=== PATIENT | male | born 1960 | race Caucasian/White ===

== ENCOUNTER 2017-09-06 13:18 | Emergency (ER) | payer OTHER ==
[~2017-09-06] VITALS: Ht 188 cm; Wt 99.1 kg
[2017-09-06] MEDS ORDERED: LIDOCAINE 1%, 20ML SQ ONE (14:00)
[2017-09-06] MEDS ORDERED: LIDOCAINE 1%, 10ML ONE ×2 (14:18→15:03)
[2017-09-06] MEDS ORDERED: LORazepam 2 MG/ML, 1ML ONE (14:56)
[2017-09-06] MEDS ORDERED: CEFAZOLIN PMX 1GM/50ML 50 ML ONE (14:56)
[2017-09-06] MEDS ORDERED: DIPH,PERTUSS(ACELL),TET VAC/PF 0.5 ML IM-VACC ONE (15:00)
[2017-09-06] MEDS ORDERED: CEFAZOLIN PMX 1GM/50ML 50 ML IVPB ONE (15:00)
[2017-09-06] MEDS ORDERED: SODIUM CHLORIDE FLUSH 10ML SYR IVF ONE (15:00)
[2017-09-06] MEDS ORDERED: SODIUM CHLORIDE 0.9% 1,000ML IVBOLUS ONE (15:00)
[2017-09-06] MEDS ORDERED: LORazepam 2 MG/ML, 1ML IVPush ONE (15:00)
[2017-09-06] MEDS ORDERED: BACITRACIN ZINC OINT 500U/GM, 0.9 GM ONE (15:53)
[2017-09-06 16:10] VITALS: BP 165/85
== END 2017-09-06 16:29 | disposition home or self-care (01) ==
LOC: ED 14:00
DX: S91.311A Laceration without foreign body, right foot, initial encounter (principal); G89.11 Acute pain due to trauma; X58.XXXA Exposure to other specified factors, initial encounter; Y93.89 Activity, other specified; Y92.009 Unspecified place in unspecified non-institutional (private) residence as the place of occurrence of the external cause; Y99.8 Other external cause status
CPT/HCPCS: 13132; 13133; 73630; 96365; 96375; 99285; J0690; J2060; J7030

== ENCOUNTER 2019-01-16 23:25 | Emergency (ER) | payer OTHER ==
[~2019-01-16] VITALS: Ht 188 cm; Wt 100.0 kg
[2019-01-16 23:42] VITALS: BP 147/99
--- NOTE | 2019-01-16 23:45 | NUR ---
bib remsa d/t unable to urinate for 5 hrs pt drank beers tonight never happened per pt's report then pt urniated on the floor as soon as pt was in the rm 17 pt urinated in the bathroom too ordered bladder scanner for checking residual urine
--- NOTE | 2019-01-16 23:54 | NUR ---
bladder scanner shows >754mls of urine shows notify md levi aguillon at bedside informed pt needs catheter for empty of bladder but pt refused to use catheter at this time and wanted to take flomax instead of catheter pt wanted to go to bathroom for more evacuation of urine .
--- NOTE | 2019-01-16 23:57 | NUR ---
was notified about pt's choice of flomax instead of catheter agreed with that
--- NOTE | 2019-01-17 00:01 | NUR ---
pt will be dc'd with flomax prescription
[2019-01-17] MEDS ORDERED: TAMSULOSIN 0.4 MG CAP.ER.24H ONE (00:02)
--- NOTE | 2019-01-17 00:10 | NUR ---
given flomax one dose before sending pt home pt stated pt will back if pt had problems of urination as soon as possible and will follow up urologist at
[2019-01-17] MEDS ORDERED: TAMSULOSIN 0.4 MG CAP.ER.24H PO ONE (00:30)
== END 2019-01-17 00:13 | disposition home or self-care (01) ==
LOC: ED 01-17 00:07
DX: R33.9 Retention of urine, unspecified (principal)
CPT/HCPCS: 99284

== ENCOUNTER 2021-01-09 08:46 | Emergency (ER) | payer OTHER ==
[~2021-01-09] VITALS: Ht 188 cm; Wt 100.7 kg
--- NOTE | 2021-01-09 09:11 | NUR ---
PT BROUGHT BACK TO ROOM VIA WHEELCHAIR. PT CO LEFT HIP PAIN AND STATED THAT HE ALL OF A SUDDEN COULD NOT STAND THIS MORNING. PT HAS WAS DIAGNOSED WITH PROSTATE CA 1 MONTH AGO. PT DENIES ANY INJURY TO LEG, NUMBNESS OR TINGING. CMS INTACT.
[2021-01-09] MEDS ORDERED: HYDROmorphone 1 MG/ML, 1ML INJ IV ONE (09:30)
[2021-01-09] MEDS ORDERED: SODIUM CHLORIDE FLUSH 10ML SYR IVF ONE (09:30)
[2021-01-09] MEDS ORDERED: ONDANSETRON 2MG/ML, 2ML IVPush ONE (09:30)
[2021-01-09 09:38] LABS: ALANINE AMINOTRANSFERASE 28 U/L (12-78); ALBUMIN 3.6 g/dL (3.4-5.0); ANION GAP 7 mmol/L (5-15); CALCIUM 8.9 mg/dL (8.5-10.1); CHLORIDE 106 mmol/L (98-107); CREATININE 1.24 mg/dL (0.7-1.3)
[2021-01-09 09:40] LABS: ALKALINE PHOSPHATASE 92 U/L (45-117); BILIRUBIN,TOTAL 0.4 mg/dL (0.2-1.0); TOTAL PROTEIN 7.1 g/dL (6.4-8.2)
[2021-01-09 09:42] LABS: BASOPHILS % (AUTO) 1 % (0-1); EOSINOPHILS % (AUTO) 8 % (1-7); LYMPHOCYTES % (AUTO) 22 % (22-44); MEAN CORPUSCULAR HEMOGLOBIN 36.1 pg (27.5-34.5); MEAN CORPUSCULAR HGB CONC 35.3 g/dL (33.2-36.2); MEAN PLATELET VOLUME 7.7 fL (7.4-10.4); MONOCYTES % (AUTO) 13 % (2-9); NEUTROPHILS % (AUTO) 55 % (42-75); PLATELET COUNT 211 x10^3/uL (130-400); RED BLOOD COUNT 3.64 x10^6/uL (4.38-5.82); RED CELL DISTRIBUTION WIDTH 12.5 % (9.4-14.8)
--- NOTE | 2021-01-09 09:47 | NUR ---
CT ON HOLD; ONE ROOM WAITING FOR CODE NEURO- OTHER DOING A BIOPSY
--- NOTE | 2021-01-09 10:06 | NUR ---
PT RESTINF IN [facility] COMFORTABLY. PT DENIED PAIN MEDICATION AT THIS TIME. AWAITING CT.
--- NOTE | 2021-01-09 10:17 | NUR ---
PT TO CT
[2021-01-09 10:24] LABS: MD SCAN
[2021-01-09 11:00] VITALS: BP 145/74
--- NOTE | 2021-01-09 11:00 | NUR ---
PT RESTING COMFORTABLY IN [facility], CALL LIGHT WITHIN REACH. PT STILL DECLINING PAIN MEDICATION.
[2021-01-09] MEDS ORDERED: OMNIPAQUE 350 MG/ML, 100ML BOTTLE ONE (11:08)
--- NOTE | 2021-01-09 12:18 | NUR ---
DISCHARGE INSTRUCTIONS REVIEWED WITH PT. ALL QUESTIONS ANSWERED AT THIS TIME.
== END 2021-01-09 12:22 | disposition home or self-care (01) ==
LOC: ED 08:49
DX: M13.851 Other specified arthritis, right hip (principal); C61 Malignant neoplasm of prostate
CPT/HCPCS: 36415; 74178; 80053; 85025; 99285; Q9967

== ENCOUNTER → 2021-01-10 | Outpatient (CLI) | payer OTHER | END | disposition home or self-care (01) | LOC: RAD 09:49 | PROVIDERS: ATTEND Urology | DX: C61 Malignant neoplasm of prostate (principal); N13.30 Unspecified hydronephrosis; N32.89 Other specified disorders of bladder | CPT/HCPCS: 78306; A9503 ==

== ENCOUNTER 2021-01-13 07:35 | Emergency (ER) | payer OTHER ==
[~2021-01-13] VITALS: Ht 188 cm; Wt 100.7 kg
[2021-01-13 08:30] LABS: BASOPHILS % (AUTO) 1 % (0-1); EOSINOPHILS % (AUTO) 4 % (1-7); LYMPHOCYTES % (AUTO) 25 % (22-44); MD NO; MEAN CORPUSCULAR HEMOGLOBIN 35.8 pg (27.5-34.5); MEAN PLATELET VOLUME 7.2 fL (7.4-10.4); MONOCYTES % (AUTO) 14 % (2-9); NEUTROPHILS % (AUTO) 56 % (42-75); PLATELET COUNT 276 x10^3/uL (130-400); RED CELL DISTRIBUTION WIDTH 12.6 % (9.4-14.8)
[2021-01-13 08:35] LABS: ALANINE AMINOTRANSFERASE 31 U/L (12-78); ALBUMIN 3.6 g/dL (3.4-5.0); ANION GAP 8 mmol/L (5-15); CALCIUM 9.3 mg/dL (8.5-10.1); CHLORIDE 108 mmol/L (98-107); CREATININE 1.19 mg/dL (0.7-1.3)
[2021-01-13 08:38] LABS: ALKALINE PHOSPHATASE 94 U/L (45-117); BILIRUBIN,TOTAL 0.5 mg/dL (0.2-1.0); TOTAL PROTEIN 7.2 g/dL (6.4-8.2)
--- NOTE | 2021-01-13 08:47 | NUR ---
PT URINE WALKED TO LAB. BEDSUDE US JUST FINISHING UP.
[2021-01-13] MEDS ORDERED: HYDROmorphone 1 MG/ML, 1ML INJ IM ONE (09:00)
[2021-01-13 09:06] LABS: MICROSCOPIC NOT IND
[2021-01-13] MEDS ORDERED: KETOROLAC 30 MG/1 ML ONE (09:10)
[2021-01-13] MEDS ORDERED: LIDOCAINE 2%,20 ML JEL.PF.APP MM ONE ×2 (09:30→09:54)
[2021-01-13] MEDS ORDERED: KETOROLAC 30 MG/1 ML IM ONE (09:30)
--- NOTE | 2021-01-13 09:34 | NUR ---
dr baird spoke with dr kwok
--- NOTE | 2021-01-13 10:09 | NUR ---
PT AWARE HE NEEDS TO HAVE ENRIQUEZ PLACED. PT GETTING UP TO BATHROOM TO VOID FIRST. PT STATED FIRST PAIN MED DID NOT HELP AT ALL WITH PAIN. PT HAS ANOTHER MED ORDERED.
[2021-01-13] MEDS ORDERED: HYDROmorphone 1 MG/ML, 1ML INJ ONE (10:18)
--- NOTE | 2021-01-13 10:40 | NUR ---
PT MEDICATED FOR PAIN PER EMAR. ORDERED UROJET GIVEN TO PT BEFORE ENRIQUEZ INSERTION.
--- NOTE | 2021-01-13 11:15 | NUR ---
PT HAVING SEVERE PENILE PAIN ABOUT 15MIN AFTER ENRIQUEZ INSERTION. URINE BAG IS AT 1500CC OF DRAINED URINE. NO BLOOD INITIALLY NOTED IN TUBING. MANIPULATED INSERTION TUBING TO ENSURE BALLOON WAS NOT IN URETHRA AND PRESSED ON BELLY, BLOOD TINGED URINE EMERGED, PT PAIN REDUCED DRASTICALLY. ENRIQUEZ CONTINUING TO DRAIN. ERP AWARE.
[2021-01-13 13:29] VITALS: BP 172/94
== END 2021-01-13 13:30 | disposition home or self-care (01) ==
LOC: ED 07:59
DX: N40.1 Benign prostatic hyperplasia with lower urinary tract symptoms (principal); R33.8 Other retention of urine; M54.5 Low back pain
CPT/HCPCS: 36415; 51702; 76770; 80053; 81003; 85025; 96372; 99285; J1170; J1885

== ENCOUNTER 2021-02-22 23:21 | Emergency (ER) | payer OTHER ==
[~2021-02-22] VITALS: Ht 188 cm; Wt 92.0 kg
--- NOTE | 2021-02-22 23:25 | NUR ---
THIS IS A 61M BIB EMS FROM HOME FOLLOWING [facility], PT C/O L HIP PAIN. PT REPORTS ETOH AND THC TONIGHT PRIOR TO EVENT. PT DENIES HEAD INJURY/ LOC/ N/V. PT ARRIVES WITH MINA IN PLACE STS IT WAS INSERTED 02/09/21 AND WILL BE CHANGED THE February. PT CONNECTED TO MONITORING RESTING ON [facility]
[2021-02-22 23:59] LABS: BASOPHILS % (AUTO) 1 % (0-1); EOSINOPHILS % (AUTO) 1 % (1-7); LYMPHOCYTES % (AUTO) 28 % (22-44); MEAN CORPUSCULAR HEMOGLOBIN 35.3 pg (27.5-34.5); MEAN CORPUSCULAR HGB CONC 34.4 g/dL (33.2-36.2); MEAN PLATELET VOLUME 6.9 fL (7.4-10.4); MONOCYTES % (AUTO) 8 % (2-9); NEUTROPHILS % (AUTO) 63 % (42-75); PLATELET COUNT 287 x10^3/uL (130-400); RED BLOOD COUNT 3.83 x10^6/uL (4.38-5.82); RED CELL DISTRIBUTION WIDTH 12.6 % (9.4-14.8)
--- NOTE | 2021-02-23 00:03 | NUR ---
PT TO XRAY
[2021-02-23 00:08] LABS: ALBUMIN 3.4 g/dL (3.4-5.0); ANION GAP 10 mmol/L (5-15); CALCIUM 8.6 mg/dL (8.5-10.1); CHLORIDE 102 mmol/L (98-107); CREATININE 0.92 mg/dL (0.7-1.3)
--- NOTE | 2021-02-23 00:20 | NUR ---
URINE SENT TO LAB
[2021-02-23 01:01] LABS: MICROSCOPIC INDICATED
--- NOTE | 2021-02-23 01:25 | NUR ---
BREAK RN. PT SLEEPING, RESP EVEN AND UNLABORED.
[2021-02-23] MEDS ORDERED: OMNIPAQUE 350 MG/ML, 100ML BOTTLE ONE (01:56)
[2021-02-23] MEDS ORDERED: ONDANSETRON 2MG/ML, 2ML ONE (03:21)
[2021-02-23] MEDS ORDERED: MORPHINE SULFATE 4 MG/ML, 1ML ONE (03:21)
--- NOTE | 2021-02-23 03:26 | NUR ---
PER ERP NO CULTURES TO BE DRAWN PRIOR TO ABX START
--- NOTE | 2021-02-23 03:29 | NUR ---
PT RESTING ON [facility]
[2021-02-23] MEDS ORDERED: CEFTRIAXONE 1,000 MG in DEXTROSE 5% 50 ML IVPB ONE (03:30)
[2021-02-23] MEDS ORDERED: ONDANSETRON 2MG/ML, 2ML IVPush ONE (03:30)
[2021-02-23] MEDS ORDERED: MORPHINE SULFATE 4 MG/ML, 1ML IVPush PRN (03:30)
[2021-02-23 04:21] VITALS: BP 113/61
[2021-02-23] MEDS ORDERED: KETOROLAC 30 MG/1 ML IVPush ONE (04:30)
[2021-02-23] MEDS ORDERED: KETOROLAC 30 MG/1 ML ONE (04:34)
--- NOTE | 2021-02-23 05:03 | NUR ---
Patient/Caregiver given discharge instructions and they have confirmed that they understand the instructions. Patient ambulatory with steady gait. NAD, all questions answered appropriately, denies additional needs at this time. No personal belongings left in room after discharge.
== END 2021-02-23 05:04 | disposition home or self-care (01) ==
LOC: ED 23:50
DX: N39.0 Urinary tract infection, site not specified (principal); N12 Tubulo-interstitial nephritis, not specified as acute or chronic; Z85.46 Personal history of malignant neoplasm of prostate
CPT/HCPCS: 36415; 72110; 73502; 74177; 80048; 81001; 82040; 85025; 87077; 87086; 96365; 96375; 99285; J0696; J2270; J2405; Q9967; 87186

== ENCOUNTER 2021-03-28 05:08 | Inpatient (IN) | payer OTHER ==
[~2021-03-28] VITALS: Ht 188 cm; Wt 88.5 kg
[2021-03-28] MEDS ORDERED: MORPHINE SULFATE 4 MG/ML, 1ML ONE ×2 (05:25→08:56)
[2021-03-28] MEDS ORDERED: METOPROLOL 1 MG/ML, 5ML ONE (05:25)
[2021-03-28] MEDS ORDERED: SODIUM CHLORIDE 0.9% 1,000ML IVBOLUS ONE (05:30)
[2021-03-28] MEDS ORDERED: METOPROLOL 1 MG/ML, 5ML IVPush PRN ×2 (05:30→10:30)
[2021-03-28] MEDS ORDERED: SODIUM CHLORIDE FLUSH 10ML SYR IVF ONE (05:30)
[2021-03-28 05:36] LABS: BASOPHILS % (AUTO) 1 % (0-1); EOSINOPHILS % (AUTO) 1 % (1-7); LYMPHOCYTES % (AUTO) 20 % (22-44); MEAN CORPUSCULAR HEMOGLOBIN 35.3 pg (27.5-34.5); MEAN CORPUSCULAR HGB CONC 34.6 g/dL (33.2-36.2); MEAN PLATELET VOLUME 7.3 fL (7.4-10.4); MONOCYTES % (AUTO) 16 % (2-9); NEUTROPHILS % (AUTO) 62 % (42-75); PLATELET COUNT 166 x10^3/uL (130-400); RED BLOOD COUNT 3.65 x10^6/uL (4.38-5.82); RED CELL DISTRIBUTION WIDTH 12.6 % (9.4-14.8)
[2021-03-28] MEDS: MORPHINE SULFATE 4 MG/ML, 1ML IVPush PRN ×3 (05:40→11:30)
--- NOTE | 2021-03-28 05:40 | NUR ---
PATIENT MEDICATED PER MAR
--- NOTE | 2021-03-28 05:43 | NUR ---
PATIENT BIBA AFTER 2 SYCOPE EPISODES AT HOME. DREW STATES HE WAS ATTEMPTING TO GET A DRINK OF WATER WHEN HE "PASSED OUT" IN HIS KITCHEN AND THEN ONCE MORE WHEN HE WAS ATTEMPTING TO GET BACK INTO BED. PATIENT WAS FOUND BY EMS IN HIS BED. ON EMS MONITOR PATIENT WAS IN A-FIB WITH RVR RATE 160-200. DENIES HISTORY OF A-FIB
[2021-03-28 05:50] LABS: ALANINE AMINOTRANSFERASE 47 U/L (12-78); ALBUMIN 3.3 g/dL (3.4-5.0); ANION GAP 7 mmol/L (5-15); CALCIUM 8.1 mg/dL (8.5-10.1); CHLORIDE 107 mmol/L (98-107); CREATININE 0.97 mg/dL (0.7-1.3)
--- NOTE | 2021-03-28 05:53 | NUR ---
PATIENT REPORTS TO THE RN HE DRINKS 6-9 BEERS A DAY. YESTERDAY PATIENT REPORTS HAVING 4 BEERS AND THAT "IS ONLY A WARM UP"
[2021-03-28 05:54] LABS: ALKALINE PHOSPHATASE 94 U/L (45-117); BILIRUBIN,TOTAL 0.3 mg/dL (0.2-1.0); TOTAL PROTEIN 6.9 g/dL (6.4-8.2); TROPONIN I < 0.015 ng/mL (0.000-0.045)
--- NOTE | 2021-03-28 05:59 | NUR ---
PATIENT REPORTS PAIN IN HIS BACK SPIKED THEN SUBSIDED ONCE MORE. NAD AT THIS TIME.
[2021-03-28] MEDS ORDERED: APIXABAN 5 MG TABLET PO ONE (06:14)
[2021-03-28] MEDS ORDERED: AMIODARONE 50 MG/ML, 3ML ONE (06:15)
[2021-03-28] MEDS ORDERED: AMIODARONE 150 MG in DEXTROSE 5% 100 ML IV ONE (06:30)
[2021-03-28] MEDS ORDERED: AMIODARONE 50 MG/ML, 3ML IVPush ONE (06:30)
[2021-03-28] MEDS ORDERED: FILTER 0.22 MICRON IV ONE (06:30)
[2021-03-28] MEDS ORDERED: APIXABAN 5 MG TABLET ONE (06:31)
--- NOTE | 2021-03-28 06:54 | NUR ---
REPORT GIVEN TO KASEY KINCAID
--- NOTE | 2021-03-28 07:00 | NUR ---
report received from Carmina PARKS
--- NOTE | 2021-03-28 07:01 | NUR ---
pt resting in bed, a&o, resps even and unlabored, all monitors attached, nsr, vss, nadn.
--- NOTE | 2021-03-28 07:25 | NUR ---
PT TO CT, THIS RN TO ACCOMPANY WITH MONITORS IN PLACE
--- NOTE | 2021-03-28 07:37 | NUR ---
PT BACK FROM CT, ALL MONITORS IN PLACE, NSR, CALEN.
[2021-03-28] MEDS ORDERED: OMNIPAQUE 350 MG/ML, 75ML BOTTLE ONE (08:16)
--- NOTE | 2021-03-28 08:40 | NUR ---
report given to receiving nathen nickerson in 503
[2021-03-28] MEDS ORDERED: ICN FENTANYL 4MCG/ML IV IVPush ONE (09:06)
[2021-03-28] MEDS ORDERED: FENTANYL PF 100 MCG/2ML ONE (09:46)
--- NOTE | 2021-03-28 09:55 | NUR ---
pt medicated for pain per eMAR, tolerated well. [facility] at bedside to discuss POC
[2021-03-28] MEDS ORDERED: FENTANYL PF 100 MCG/2ML IV ONE (10:00)
[2021-03-28] MEDS ORDERED: ACETAMINOPHEN 325 MG TABLET PO PRN (10:30)
[2021-03-28] MEDS ORDERED: POLYETHYLENE GLYCOL 17 GM PACKET PO PRN (10:30)
[2021-03-28] MEDS ORDERED: APIXABAN 5 MG TABLET PO SCH (10:34)
[2021-03-28 10:46] LABS: FREE T4 (FREE THYROXINE) 0.98 ng/dL (0.76-1.46)
[2021-03-28 11:03] VITALS: BP 167/101
[2021-03-28 11:10] VITALS: BP 150/84
[2021-03-28] MEDS: LACTATED RINGERS 1,000 ML IV SCH (11:25)
[2021-03-28] MEDS ORDERED: TAMS-11 PO (11:51)
[2021-03-28] MEDS: OXYcodone/APAP 5/325MG TABLET PO PRN ×2 (12:58→20:18)
[2021-03-28 13:20] VITALS: BP 157/85
[2021-03-28] MEDS ORDERED: ONDANSETRON 2MG/ML, 2ML IVPush PRN (15:30)
[2021-03-28] MEDS ORDERED: ALPR1TAB2 PO ×2 (15:50→17:13)
[2021-03-28] MEDS ORDERED: LORazepam 2 MG/ML, 1ML IV PRN (16:00)
[2021-03-28] MEDS ORDERED: CHLORDIAZEPOXIDE 25 MG CAPSULE PO SCH (16:00)
[2021-03-28] MEDS ORDERED: LORazepam 1MG TABLET PO PRN (16:00)
[2021-03-28 17:22] VITALS: BP 165/85
[2021-03-28] MEDS: BACLOFEN 10 MG TABLET PO SCH ×2 (17:23→20:18)
[2021-03-28] MEDS: METOPROLOL TARTRATE 25 MG TAB PO SCH (17:23)
[2021-03-28] MEDS ORDERED: LORazepam 2 MG/ML, 1ML IVPush PRN (17:30)
[2021-03-28] MEDS ORDERED: OXYcodone IR 5MG TABLET PO PRN (17:30)
[2021-03-28 19:22] VITALS: BP 162/80
[2021-03-28] MEDS: APIXABAN 5 MG TABLET PO SCH (20:17)
[2021-03-28] MEDS: DOCUSATE 100 MG CAPSULE PO SCH (20:18)
[2021-03-29] MEDS: OXYcodone/APAP 5/325MG TABLET PO PRN ×4 (00:29→16:12)
[2021-03-29 00:30] VITALS: BP 135/82
[2021-03-29] MEDS: LACTATED RINGERS 1,000 ML IV SCH ×2 (00:30→10:56)
[2021-03-29] MEDS: MORPHINE SULFATE 4 MG/ML, 1ML IVPush PRN (00:52)
[2021-03-29 05:20] LABS: BASOPHILS % (AUTO) 1 % (0-1); EOSINOPHILS % (AUTO) 1 % (1-7); LYMPHOCYTES % (AUTO) 36 % (22-44); MEAN CORPUSCULAR HEMOGLOBIN 34.9 pg (27.5-34.5); MEAN CORPUSCULAR HGB CONC 34.6 g/dL (33.2-36.2); MEAN PLATELET VOLUME 7.6 fL (7.4-10.4); MONOCYTES % (AUTO) 23 % (2-9); NEUTROPHILS % (AUTO) 41 % (42-75); PLATELET COUNT 166 x10^3/uL (130-400); RED BLOOD COUNT 3.64 x10^6/uL (4.38-5.82); RED CELL DISTRIBUTION WIDTH 12.7 % (9.4-14.8)
[2021-03-29 05:32] LABS: CALCIUM 8.7 mg/dL (8.5-10.1); CHLORIDE 105 mmol/L (98-107)
[2021-03-29 05:33] LABS: CREATININE 0.85 mg/dL (0.7-1.3)
[2021-03-29] MEDS: METOPROLOL TARTRATE 25 MG TAB PO SCH ×2 (05:34→21:46)
[2021-03-29 05:44] LABS: ANION GAP 2 mmol/L (5-15)
[2021-03-29 07:41] VITALS: BP 126/73
[2021-03-29] MEDS: MULTIVITAMINS/MINERALS TABLET PO SCH (08:29)
[2021-03-29] MEDS: BACLOFEN 10 MG TABLET PO SCH ×3 (08:29→21:45)
[2021-03-29] MEDS: APIXABAN 5 MG TABLET PO SCH ×2 (08:30→21:45)
[2021-03-29] MEDS: DOCUSATE 100 MG CAPSULE PO SCH ×2 (08:33→21:45)
[2021-03-29 14:32] VITALS: BP 143/83
[2021-03-29] MEDS ORDERED: GADOTERATE 10 MMOL/20ML SYR ONE (18:05)
[2021-03-29 18:42] VITALS: BP 144/78
[2021-03-30 00:15] VITALS: BP 165/87
[2021-03-30] MEDS: OXYcodone/APAP 5/325MG TABLET PO PRN (02:28)
[2021-03-30] MEDS: LACTATED RINGERS 1,000 ML IV SCH ×3 (02:29→23:16)
[2021-03-30 05:10] LABS: BASOPHILS % (AUTO) 1 % (0-1); EOSINOPHILS % (AUTO) 0 % (1-7); LYMPHOCYTES % (AUTO) 21 % (22-44); MEAN CORPUSCULAR HEMOGLOBIN 35.1 pg (27.5-34.5); MEAN CORPUSCULAR HGB CONC 35.1 g/dL (33.2-36.2); MEAN PLATELET VOLUME 7.7 fL (7.4-10.4); MONOCYTES % (AUTO) 12 % (2-9); NEUTROPHILS % (AUTO) 66 % (42-75); PLATELET COUNT 171 x10^3/uL (130-400); RED CELL DISTRIBUTION WIDTH 12.7 % (9.4-14.8)
[2021-03-30 05:18] LABS: ANION GAP 9 mmol/L (5-15); CHLORIDE 100 mmol/L (98-107); CREATININE 0.71 mg/dL (0.7-1.3)
[2021-03-30 05:33] VITALS: BP 156/82
[2021-03-30] MEDS: METOPROLOL TARTRATE 25 MG TAB PO SCH ×2 (05:36→18:13)
[2021-03-30] MEDS ORDERED: POTASSIUM CHLORIDE 20 MEQ TAB.ER.PRT PO ONE (06:30)
[2021-03-30 07:32] VITALS: BP 154/85
[2021-03-30] MEDS ORDERED: THIAMINE 100MG TABLET ONE (08:38)
[2021-03-30] MEDS: DOCUSATE 100 MG CAPSULE PO SCH ×2 (08:46→21:47)
[2021-03-30] MEDS: MULTIVITAMINS/MINERALS TABLET PO SCH (08:47)
[2021-03-30] MEDS: APIXABAN 5 MG TABLET PO SCH ×2 (08:47→21:48)
[2021-03-30] MEDS: BACLOFEN 10 MG TABLET PO SCH ×3 (08:47→21:48)
[2021-03-30] MEDS: THIAMINE 100MG TABLET PO SCH (08:54)
[2021-03-30] MEDS ORDERED: THIAMINE 100 MG in DEXTROSE 5% 50 ML IVPB SCH (09:00)
[2021-03-30 12:44] VITALS: BP 176/76
[2021-03-30 14:35] VITALS: BP 169/95
[2021-03-30 18:33] VITALS: BP 172/97
[2021-03-30] MEDS: LORazepam 0.5MG TABLET PO PRN (21:48)
[2021-03-31 02:00] VITALS: BP 156/62
[2021-03-31] MEDS: LORazepam 1MG TABLET PO PRN ×2 (03:53→08:35)
[2021-03-31 05:13] LABS: BASOPHILS % (AUTO) 1 % (0-1); EOSINOPHILS % (AUTO) 0 % (1-7); LYMPHOCYTES % (AUTO) 11 % (22-44); MEAN CORPUSCULAR HEMOGLOBIN 35.2 pg (27.5-34.5); MEAN CORPUSCULAR HGB CONC 35.7 g/dL (33.2-36.2); MEAN PLATELET VOLUME 7.9 fL (7.4-10.4); MONOCYTES % (AUTO) 15 % (2-9); NEUTROPHILS % (AUTO) 74 % (42-75); PLATELET COUNT 161 x10^3/uL (130-400); RED BLOOD COUNT 3.79 x10^6/uL (4.38-5.82); RED CELL DISTRIBUTION WIDTH 12.6 % (9.4-14.8)
[2021-03-31 05:24] LABS: CHLORIDE 96 mmol/L (98-107)
[2021-03-31 05:30] LABS: ANION GAP 11 mmol/L (5-15); CALCIUM 8.3 mg/dL (8.5-10.1); CREATININE 0.63 mg/dL (0.7-1.3)
[2021-03-31] MEDS: APIXABAN 5 MG TABLET PO SCH ×2 (08:41→22:35)
[2021-03-31] MEDS: LACTATED RINGERS 1,000 ML IV SCH ×3 (08:41→13:14)
[2021-03-31] MEDS: BACLOFEN 10 MG TABLET PO SCH ×3 (08:41→22:35)
[2021-03-31] MEDS: DOCUSATE 100 MG CAPSULE PO SCH ×2 (08:41→21:00)
[2021-03-31] MEDS: MULTIVITAMINS/MINERALS TABLET PO SCH (08:41)
[2021-03-31] MEDS: METOPROLOL TARTRATE 25 MG TAB PO SCH ×2 (08:41→17:14)
[2021-03-31] MEDS: THIAMINE 100MG TABLET PO SCH (08:42)
[2021-03-31 08:57] VITALS: BP 145/60
[2021-03-31] MEDS ORDERED: POTASSIUM CHLORIDE 20 MEQ TAB.ER.PRT PO ONE (10:30)
[2021-03-31] MEDS ORDERED: MAGNESIUM SULFATE PMX 4GM/100M 100 ML ONE (13:05)
[2021-03-31] MEDS: LORazepam 2 MG/ML, 1ML IV PRN ×3 (13:10→22:36)
[2021-03-31] MEDS ORDERED: MAGNESIUM SULFATE PMX 4GM/100M 100 ML IVPB ONE (13:30)
[2021-03-31 13:58] VITALS: BP 145/75
[2021-03-31 22:31] VITALS: BP 160/90
[2021-04-01 02:35] VITALS: BP 165/95
[2021-04-01] MEDS: LORazepam 2 MG/ML, 1ML IV PRN ×5 (02:40→15:34)
[2021-04-01] MEDS: ACETAMINOPHEN 325 MG TABLET PO PRN (02:46)
[2021-04-01] MEDS: LACTATED RINGERS 1,000 ML IV SCH ×2 (03:10→20:26)
[2021-04-01 05:17] LABS: ANION GAP 10 mmol/L (5-15); CALCIUM 8.1 mg/dL (8.5-10.1); CHLORIDE 97 mmol/L (98-107)
[2021-04-01 05:18] LABS: CREATININE 0.72 mg/dL (0.7-1.3)
[2021-04-01] MEDS: METOPROLOL TARTRATE 25 MG TAB PO SCH (05:52)
[2021-04-01] MEDS: DOCUSATE 100 MG CAPSULE PO SCH ×3 (08:10→20:34)
[2021-04-01 08:11] VITALS: BP 158/89
[2021-04-01] MEDS: MULTIVITAMINS/MINERALS TABLET PO SCH (08:17)
[2021-04-01] MEDS: APIXABAN 5 MG TABLET PO SCH ×2 (08:17→20:25)
[2021-04-01] MEDS: BACLOFEN 10 MG TABLET PO SCH ×3 (08:17→20:26)
[2021-04-01] MEDS: THIAMINE 100MG TABLET PO SCH (08:18)
[2021-04-01] MEDS ORDERED: POTASSIUM CHLORIDE 20 MEQ TAB.ER.PRT PO ONE (08:30)
[2021-04-01 15:23] VITALS: BP 137/89
[2021-04-01] MEDS: CARVEDILOL 6.25 MG TABLET PO SCH (17:32)
[2021-04-01 18:51] VITALS: BP 130/81
[2021-04-01] MEDS: LOSARTAN 25MG TABLET PO SCH (20:25)
[2021-04-01] MEDS: LORazepam 1MG TABLET PO PRN (20:25)
[2021-04-01] MEDS: AMLODIPINE 5 MG TABLET PO SCH (20:25)
[2021-04-02 00:58] VITALS: BP 143/78
[2021-04-02] MEDS: ACETAMINOPHEN 325 MG TABLET PO PRN (01:39)
[2021-04-02] MEDS: LORazepam 1MG TABLET PO PRN ×2 (01:39→06:44)
[2021-04-02 04:46] LABS: CALCIUM 8.9 mg/dL (8.5-10.1); CREATININE 0.78 mg/dL (0.7-1.3)
[2021-04-02 04:56] LABS: ANION GAP 7 mmol/L (5-15); CHLORIDE 98 mmol/L (98-107)
[2021-04-02 06:26] VITALS: BP 146/84
[2021-04-02 06:39] VITALS: BP 126/78
[2021-04-02] MEDS: CARVEDILOL 6.25 MG TABLET PO SCH ×2 (06:43→17:21)
[2021-04-02] MEDS: DOCUSATE 100 MG CAPSULE PO SCH ×2 (08:59→20:58)
[2021-04-02] MEDS: MULTIVITAMINS/MINERALS TABLET PO SCH (09:17)
[2021-04-02] MEDS: THIAMINE 100MG TABLET PO SCH (09:17)
[2021-04-02] MEDS: BACLOFEN 10 MG TABLET PO SCH ×3 (09:17→20:58)
[2021-04-02] MEDS: APIXABAN 5 MG TABLET PO SCH ×2 (09:17→20:57)
[2021-04-02 09:33] VITALS: BP 124/86
[2021-04-02] MEDS: LORazepam 0.5MG TABLET PO PRN ×2 (09:36→20:57)
[2021-04-02] MEDS: LACTATED RINGERS 1,000 ML IV SCH (11:20)
[2021-04-02 13:38] VITALS: BP 129/78
[2021-04-02 19:36] VITALS: BP 154/78
[2021-04-02] MEDS: LOSARTAN 25MG TABLET PO SCH (20:58)
[2021-04-02] MEDS: AMLODIPINE 5 MG TABLET PO SCH (20:58)
[2021-04-03 00:07] VITALS: BP 150/86
[2021-04-03] MEDS: LORazepam 1MG TABLET PO PRN (00:32)
[2021-04-03 05:52] VITALS: BP 152/80
[2021-04-03] MEDS: LORazepam 0.5MG TABLET PO PRN ×2 (05:53→20:25)
[2021-04-03] MEDS: CARVEDILOL 6.25 MG TABLET PO SCH ×2 (05:54→17:04)
[2021-04-03] MEDS: CEFTRIAXONE 2,000 MG in DEXTROSE 5% 50 ML IV SCH (09:00)
[2021-04-03] MEDS ORDERED: DEXAMETHASONE 4 MG/ML, 5ML IVPush SCH (09:00)
[2021-04-03 09:10] VITALS: BP 157/83
[2021-04-03] MEDS: DEXAMETHASONE 4 MG/ML, 1ML IVPush SCH (09:15)
[2021-04-03] MEDS: THIAMINE 100MG TABLET PO SCH (10:45)
[2021-04-03] MEDS: APIXABAN 5 MG TABLET PO SCH ×2 (10:46→20:24)
[2021-04-03] MEDS: DOCUSATE 100 MG CAPSULE PO SCH ×2 (10:46→19:21)
[2021-04-03] MEDS: ACETAMINOPHEN 325 MG TABLET PO PRN (10:46)
[2021-04-03] MEDS: BACLOFEN 10 MG TABLET PO SCH ×3 (10:46→20:24)
[2021-04-03] MEDS: MULTIVITAMINS/MINERALS TABLET PO SCH (10:46)
[2021-04-03] MEDS: LACTATED RINGERS 1,000 ML IV SCH (11:28)
[2021-04-03 13:44] VITALS: BP 138/76
[2021-04-03 18:03] LABS: MICROSCOPIC INDICATED
[2021-04-03 18:42] VITALS: BP 138/83
[2021-04-03 19:36] LABS: RAPID INFLUENZA A Negative (Negative); RAPID INFLUENZA B Negative (Negative)
[2021-04-03] MEDS: LOSARTAN 25MG TABLET PO SCH (20:24)
[2021-04-03] MEDS: AMLODIPINE 5 MG TABLET PO SCH (20:24)
[2021-04-04] MEDS: LACTATED RINGERS 1,000 ML IV SCH ×2 (00:24→20:54)
[2021-04-04 01:45] VITALS: BP 129/78
[2021-04-04] MEDS: ACETAMINOPHEN 325 MG TABLET PO PRN (03:50)
[2021-04-04 05:35] LABS: MEAN CORPUSCULAR HEMOGLOBIN 34.6 pg (27.5-34.5); MEAN CORPUSCULAR HGB CONC 35.1 g/dL (33.2-36.2); MEAN PLATELET VOLUME 7.9 fL (7.4-10.4); PLATELET COUNT 187 x10^3/uL (130-400); RED BLOOD COUNT 3.79 x10^6/uL (4.38-5.82); RED CELL DISTRIBUTION WIDTH 12.8 % (9.4-14.8)
[2021-04-04 05:47] LABS: ANION GAP 8 mmol/L (5-15); CALCIUM 8.3 mg/dL (8.5-10.1); CHLORIDE 100 mmol/L (98-107); CREATININE 0.62 mg/dL (0.7-1.3)
[2021-04-04 06:04] VITALS: BP 129/81
[2021-04-04] MEDS: CARVEDILOL 6.25 MG TABLET PO SCH ×2 (06:05→17:13)
[2021-04-04] MEDS ORDERED: POTASSIUM CHLORIDE 20 MEQ TAB.ER.PRT PO ONE (08:30)
[2021-04-04] MEDS: BACLOFEN 10 MG TABLET PO SCH ×3 (09:29→20:53)
[2021-04-04] MEDS: MULTIVITAMINS/MINERALS TABLET PO SCH (09:29)
[2021-04-04] MEDS: DOCUSATE 100 MG CAPSULE PO SCH ×2 (09:30→20:54)
[2021-04-04] MEDS: THIAMINE 100MG TABLET PO SCH (09:30)
[2021-04-04] MEDS: DEXAMETHASONE 4 MG/ML, 1ML IVPush SCH (09:30)
[2021-04-04] MEDS: APIXABAN 5 MG TABLET PO SCH ×2 (09:30→20:53)
[2021-04-04 09:41] LABS: BAND#(MANUAL) 0.09 x10^3/uL; BANDS%(MANUAL) 3 % (0-7); LYMPH#(MANUAL) 1.11 x10^3/uL (1-3.4); LYMPHS% (MANUAL) 37 % (22-44); MONOS#(MANUAL) 0.54 x10^3/uL (0.3-2.7); MONOS% (MANUAL) 18 % (2-9); REACTIVE LYMPHS # (MANUAL) 0.03 x10^3/uL (0-0); REACTIVE LYMPHS % (MANUAL) 1 % (0-0); SEG#(MANUAL) 1.23 x10^3/uL (1.8-6.8); SEGS% (MANUAL) 41 % (42-75)
[2021-04-04 09:42] LABS: <PLATELET ESTIMATE> ADEQUATE; <PLT MORPHOLOGY> NORMAL PLT MORPH; <RBC MORPHOLOGY> NORMAL
[2021-04-04] MEDS: CEFTRIAXONE 2,000 MG in DEXTROSE 5% 50 ML IV SCH (09:57)
[2021-04-04] MEDS ORDERED: BENZONATATE 100 MG CAPSULE PO PRN ×2 (12:30→13:00)
[2021-04-04 13:18] VITALS: BP 121/79
--- NOTE | 2021-04-04 16:57 | NUR ---
green nursing activity sheet initiated pt up to chair for meals and up to BSC with nursing Addendum: 04/04/21 at 1700 by Opal Lopez PT Amended: Links added.
[2021-04-04] MEDS: ASCORBIC ACID 250 MG TAB PO SCH (17:13)
[2021-04-04 18:44] VITALS: BP 111/68
[2021-04-04] MEDS: AMLODIPINE 5 MG TABLET PO SCH (20:53)
[2021-04-04] MEDS: LOSARTAN 25MG TABLET PO SCH (20:53)
[2021-04-05] VITALS (7 sets, daily range): BP systolic 105–141; BP diastolic 66–84
[2021-04-05 05:55] LABS: CALCIUM 9.3 mg/dL (8.5-10.1); CREATININE 0.54 mg/dL (0.7-1.3)
[2021-04-05] MEDS: CARVEDILOL 6.25 MG TABLET PO SCH ×2 (06:03→17:49)
[2021-04-05 06:11] LABS: ANION GAP 8 mmol/L (5-15); CHLORIDE 104 mmol/L (98-107)
[2021-04-05] MEDS: THIAMINE 100MG TABLET PO SCH (09:00)
[2021-04-05] MEDS: CEFTRIAXONE 2,000 MG in DEXTROSE 5% 50 ML IV SCH (09:00)
[2021-04-05] MEDS: BACLOFEN 10 MG TABLET PO SCH ×3 (09:06→21:56)
[2021-04-05] MEDS: ASCORBIC ACID 250 MG TAB PO SCH ×2 (09:06→17:49)
[2021-04-05] MEDS: APIXABAN 5 MG TABLET PO SCH ×2 (09:06→21:56)
[2021-04-05] MEDS: DOCUSATE 100 MG CAPSULE PO SCH ×2 (09:06→21:56)
[2021-04-05] MEDS: MULTIVITAMINS/MINERALS TABLET PO SCH (09:06)
[2021-04-05] MEDS: DEXAMETHASONE 4 MG/ML, 1ML IVPush SCH (09:07)
[2021-04-05] MEDS: LACTATED RINGERS 1,000 ML IV SCH (10:18)
[2021-04-05] MEDS: LOSARTAN 25MG TABLET PO SCH (21:56)
[2021-04-05] MEDS: AMLODIPINE 5 MG TABLET PO SCH (21:56)
[2021-04-06] MEDS: LACTATED RINGERS 1,000 ML IV SCH (02:55)
[2021-04-06 02:57] VITALS: BP 146/81
[2021-04-06 06:07] VITALS: BP 148/76
[2021-04-06 06:08] LABS: C-REACTIVE PROTEIN, QUANT 2.4 mg/dL (0.02-0.49)
[2021-04-06] MEDS: CARVEDILOL 6.25 MG TABLET PO SCH ×2 (06:10→17:58)
[2021-04-06 08:18] VITALS: BP 154/74
[2021-04-06] MEDS: DOCUSATE 100 MG CAPSULE PO SCH ×2 (08:46→21:52)
[2021-04-06] MEDS: BACLOFEN 10 MG TABLET PO SCH ×3 (08:46→21:52)
[2021-04-06] MEDS: THIAMINE 100MG TABLET PO SCH (08:46)
[2021-04-06] MEDS: APIXABAN 5 MG TABLET PO SCH ×2 (08:46→21:52)
[2021-04-06] MEDS: MULTIVITAMINS/MINERALS TABLET PO SCH (08:46)
[2021-04-06] MEDS: DEXAMETHASONE 4 MG/ML, 1ML IVPush SCH (08:47)
[2021-04-06] MEDS: ASCORBIC ACID 250 MG TAB PO SCH ×2 (08:47→17:58)
[2021-04-06] MEDS: CEFDINIR 300 MG CAPSULE PO SCH ×2 (11:02→21:52)
[2021-04-06 13:58] VITALS: BP 158/82
[2021-04-06] MEDS: LOSARTAN 25MG TABLET PO SCH (21:52)
[2021-04-06] MEDS: AMLODIPINE 5 MG TABLET PO SCH (21:52)
[2021-04-06 21:57] VITALS: BP 141/87
[2021-04-07 02:42] VITALS: BP 144/83
[2021-04-07] MEDS: ASCORBIC ACID 250 MG TAB PO SCH (06:16)
[2021-04-07] MEDS: CARVEDILOL 6.25 MG TABLET PO SCH (06:16)
[2021-04-07] MEDS: BACLOFEN 10 MG TABLET PO SCH (08:08)
[2021-04-07] MEDS: MULTIVITAMINS/MINERALS TABLET PO SCH (08:08)
[2021-04-07] MEDS: CEFDINIR 300 MG CAPSULE PO SCH (08:08)
[2021-04-07] MEDS: APIXABAN 5 MG TABLET PO SCH (08:08)
[2021-04-07] MEDS: DEXAMETHASONE 4 MG/ML, 1ML IVPush SCH (08:08)
[2021-04-07] MEDS: THIAMINE 100MG TABLET PO SCH (08:08)
[2021-04-07] MEDS: DOCUSATE 100 MG CAPSULE PO SCH (08:08)
[2021-04-07 09:34] VITALS: BP 129/72
[2021-04-07] MEDS ORDERED: CARV6.2512 PO (11:16)
[2021-04-07] MEDS ORDERED: ASCO250T12 PO (11:16)
[2021-04-07] MEDS ORDERED: DEXA4TAB66 PO (11:16)
[2021-04-07] MEDS ORDERED: THIA100T67 PO (11:16)
[2021-04-07] MEDS ORDERED: APIX5TAB PO (11:16)
[2021-04-07] MEDS ORDERED: LOSA25TA25 PO (11:16)
[2021-04-07] MEDS ORDERED: AMLO-150 PO (11:16)
[2021-04-08] MEDS ORDERED: DEXAMETHASONE 4 MG TABLET PO SCH (07:30)
== END 2021-04-07 16:50 | disposition home or self-care (01) | DRG 871 ==
LOC: ED 05:21 → 5SO 09:27
PROVIDERS: ADMIT Emergency Medicine; ATTEND Internal Medicine
PROC: 0T9B70Z Drainage of Bladder with Drainage Device, Via Natural or Artificial Opening (ICD-10-PCS; principal; 2021-04-03)
DX: A41.9 Sepsis, unspecified organism (principal); G93.41 Metabolic encephalopathy; J12.82 Pneumonia due to coronavirus disease 2019; U07.1 COVID-19; E87.1 Hypo-osmolality and hyponatremia; N39.0 Urinary tract infection, site not specified; E87.3 Alkalosis; F10.239 Alcohol dependence with withdrawal, unspecified; E83.42 Hypomagnesemia; E87.6 Hypokalemia; G89.29 Other chronic pain; I10 Essential (primary) hypertension; I48.0 Paroxysmal atrial fibrillation; Z85.46 Personal history of malignant neoplasm of prostate; Z78.9 Other specified health status; S50.811A Abrasion of right forearm, initial encounter; M48.061 Spinal stenosis, lumbar region without neurogenic claudication; K70.10 Alcoholic hepatitis without ascites; M47.9 Spondylosis, unspecified; W18.39XA Other fall on same level, initial encounter; Y93.89 Activity, other specified; Y92.89 Other specified places as the place of occurrence of the external cause; Y99.8 Other external cause status; Y90.9 Presence of alcohol in blood, level not specified
CPT/HCPCS: 36415; 36600; 70450; 71045; 71275; 72158; 72197; 80048; 80053; 81001; 82728; 82803; 82977; 83605; 83615; 83735; 84100; 84439; 84443; 84484; 85025; 85379; 86140; 87040; 87086; 87400; 93005; 93306; 96374; G0378; J0696; J1100; J2405; J3010; Q9967; U0005; A9575; J0282; J2060; J2270; J3475; J7030; J7120; U0003